=== PATIENT | female | born 1955 | race Caucasian/White ===

== ENCOUNTER 2018-03-09 08:52 | Emergency (ER) | payer OTHER ==
[2018-03-09 09:01] VITALS: RESP 18
--- NOTE | 2018-03-09 09:35 | ED ---
Fall HPI - General Chief Complaint: Fall Stated Complaint: Fall, head injury Time Seen by Provider: 03/09/18 09:13 Source: patient, RN notes reviewed Mode of arrival: ambulatory Limitations: no limitations - History of Present Illness Initial Comments: 63-year-old female presents emergency Department chief complaint head injury. Patient states she tripped fell backwards struck her head is on the tile floor or the corner of the door frame. Patient states that she knows consciousness but she felt days. Patient has headache in the posterior aspect. Denies any neck pain no extremity injury no back pain. Patient states she just concerned as she fell and struck her head significantly. Patient does not take any aspirin or any other anticoagulants. Patient denies blurred vision, double vision, nausea, vomiting. Patient is here with sister who states that she is at her normal baseline no confusion. - Related Data Home Medications Medication Instructions Recorded Confirmed Atorvastatin [Lipitor] 10 mg PO HS 03/09/18 03/09/18 Losartan Potassium [Cozaar] 25 mg PO HS 03/09/18 03/09/18 Magnesium Oxide [Coles] 1,000 mg PO HS 03/09/18 03/09/18 Zinc 50 mg PO HS 03/09/18 03/09/18 metFORMIN HCL 1,000 mg PO BID 03/09/18 03/09/18 Allergies Allergy/AdvReac Type Severity Reaction Status Date / Time morphine AdvReac Vomiting Verified 03/09/18 09:08 Sulfa (Sulfonamide AdvReac MOUTH SORES Verified 03/09/18 09:08 Antibiotics) Review of Systems ROS Statement: Those systems with pertinent positive or pertinent negative responses have been documented in the HPI. ROS Other: All systems not noted in ROS Statement are negative. Past Medical History Past Medical History: Diabetes Mellitus, Hypertension History of Any Multi-Drug Resistant Organisms: None Reported Past Surgical History: Back Surgery, Section, Orthopedic Surgery, Tonsillectomy Past Psychological History: No Psychological Hx Reported Smoking Status: Never smoker Past Alcohol Use History: None Reported Past Drug Use History: None Reported General Exam Limitations: no limitations General appearance: alert, in no apparent distress Head exam: Present: atraumatic, normocephalic. Absent: normal inspection ( Small hematoma occipital region) Eye exam: Present: normal appearance, PERRL, EOMI. Absent: scleral icterus, conjunctival injection, periorbital swelling ENT exam: Present: normal exam, normal oropharynx, mucous membranes moist, TM's normal bilaterally, normal external ear exam Neck exam: Present: normal inspection, full ROM. Absent: tenderness, meningismus, lymphadenopathy Respiratory exam: Present: normal lung sounds bilaterally. Absent: respiratory distress, wheezes, rales, rhonchi, stridor Cardiovascular Exam: Present: regular rate, normal rhythm, normal heart sounds. Absent: systolic murmur, diastolic murmur, rubs, gallop, clicks GI/Abdominal exam: Present: soft, normal bowel sounds. Absent: distended, tenderness, guarding, rebound, rigid Extremities exam: Present: normal inspection, full ROM, normal capillary refill. Absent: tenderness, pedal edema, joint swelling, calf tenderness Back exam: Present: normal inspection, full ROM. Absent: tenderness Neurological exam: Present: alert, oriented X3, CN II-XII intact, reflexes normal, other (Finger to nose intact bilaterally without over shooting). Absent : motor sensory deficit Skin exam: Present: warm, dry, intact, normal color. Absent: rash Course Vital Signs 03/09/18 08:55 Temperature 98.2 F Pulse Rate 98 Respiratory 18 Rate Blood Pressure 160/79 O2 Sat by Pulse 99 Oximetry Medical Decision Making - Medical Decision Making 63-year-old female presented emergency department for head injury. CT was obtained no acute fracture or intracranial hemorrhage. Patient patient was given instructions for head injury and return parameters. Disposition Clinical Impression: Fall, Head injury Disposition: HOME SELF-CARE Condition: Stable Instructions: Head Injury (ED) Additional Instructions: Please return to the Emergency Department if symptoms worsen or any other concerns. Is patient prescribed a controlled substance at d/c from ED?: No Referrals: Bernard Leslie MD [Primary Care Provider] - 1-2 days Time of Disposition: 11:13
--- NOTE | 2018-03-09 11:10 | CT ---
EXAMINATION TYPE: CT brain kymberly ellis con DATE OF EXAM: 03/09/2018 COMPARISON: None HISTORY: Fell hit back of head, no LOC CT DLP: 1117 mGycm, Automated exposure control for dose reduction was used. CONTRAST: None CT of the brain is performed utilizing 3 mm thick sections through the posterior fossa and 3 mm thick sections through the remaining calvarium. Study is performed within 24 hours of arrival to the hospital. No abnormal hyperdensity is present to suggest an acute intracranial hemorrhage. No mass lesion is evident. No acute infarcts are evident. Ventricles and sulci are appropriate for the patient age. Paranasal sinuses and mastoid air cells within the [id number] are clear. IMPRESSIONS: 1. Normal CT brain. CT cervical spine. COMPARISON: None CT of the cervical spine is performed in the axial plane at 2 mm thick sections. Reconstructed image s in the coronal, and sagittal plane are reviewed on the computer. No acute fractures are evident. There is straightening of the vertebral body alignment in the sagittal plane. This can be related to patient positioning. There is disc space narrowing C6-C7. Vertebral body heights are preserved. No spinal canal stenosis is evident. No neural foraminal stenosis is evident. Small amount of anterior vertebral body spurring is present C5, C6, and C7. IMPRESSIONS: 1. No acute abnormality cervical spine. 2. Degenerative disc changes C6-7.
[2018-03-09 11:25] VITALS: BP 162/98; PULSE 88; TEMP 98.1
== END 2018-03-09 11:23 | disposition home or self-care (01) ==
LOC: EC 08:52
DX: S00.03XA Contusion of scalp, initial encounter (principal); E11.9 Type 2 diabetes mellitus without complications; I10 Essential (primary) hypertension; Z88.2 Allergy status to sulfonamides; Z88.5 Allergy status to narcotic agent; Z79.84 Long term (current) use of oral hypoglycemic drugs; Z79.899 Other long term (current) drug therapy; W01.198A Fall on same level from slipping, tripping and stumbling with subsequent striking against other object, initial encounter; Y92.009 Unspecified place in unspecified non-institutional (private) residence as the place of occurrence of the external cause
CPT/HCPCS: 70450; 72125; 99283

== ENCOUNTER 2018-10-18 09:13 | Day surgery (SDC) | payer BC ==
[2018-10-17 11:24] VITALS: BMI 34.7
[~2018-10-18 09:13] MED LIST: LACTATED RINGERS 1,000 ML IV SCH; LIDOCAINE 1% 20 ML VIAL (10MG/ML) FOR IV START INTRADERMA PRN
[2018-10-18 10:52] LABS: Glucose,Whole Blood 98 mg/dL (75-99)
[2018-10-18 10:53] VITALS: TEMP 96.9
[2018-10-18] MEDS ORDERED: LIDOCAINE 1% INJ 10MG/ML (20 ML MDV) ONE (12:04)
[2018-10-18] MEDS ORDERED: PROPOFOL 10 MG/ML 20 ML VIAL IV ONE (12:04)
[2018-10-18 12:29] VITALS: RESP 16
[2018-10-18 12:51] VITALS: BP 163/80; PULSE 76
--- NOTE | 2018-10-19 00:11 | OP ---
OPERATIVE REPORT DATE OF SERVICE: 10/18/2018. PROCEDURE: Colonoscopy and polypectomy. PREOPERATIVE DIAGNOSIS: Screening for neoplasia. POSTOPERATIVE DIAGNOSES: 1. Two small polyps snared in the right colon and sigmoid, but no large polyps or cancer. 2. Sigmoid diverticulosis with no evidence of acute diverticulitis or stricture. PREPARATION: Half-Lytely prep. SEDATION: Provided by Anesthesia. BRIEF CLINICAL HISTORY: The patient is a 63-year-old female with history of polyps, who is scheduled for this evaluation for screening. Her last exam was around 7 years ago. The patient has no abdominal complaints, bleeding or anemia. DESCRIPTION OF PROCEDURE: With the patient on her left lateral decubitus position and after informed consent and adequate sedation, the perianal area was inspected and it did not show any fissures or fistulas. There were no masses felt on digital rectal examination. The Olympus CFH 190L video colonoscope was then inserted in the rectum in the usual fashion and advanced to the cecum. There were multiple diverticular orifices seen scattered in the sigmoid with no evidence of acute diverticulitis or strictures. The mucosa appeared healthy. There were 2 polyps noted, both were small, 1 in the proximal right colon and 1 in the mid sigmoid. They were snared, but I was not certain if the specimens were collected at the time of this dictation. No other pathology noted. I retroflexed the endoscope in the rectum before the endoscope was withdrawn. The patient tolerated the procedure well. PLAN: The patient was reassured. I anticipate repeating this exam in 5 years. We discussed dietary measures. She will follow up with you as planned. MMODL / IJN: [id number] /
== END 2018-10-18 13:00 | disposition home or self-care (01) ==
LOC: ORWHC2ENDO 09:13
DX: Z12.11 Encounter for screening for malignant neoplasm of colon (principal); D12.5 Benign neoplasm of sigmoid colon; K63.5 Polyp of colon; K57.30 Diverticulosis of large intestine without perforation or abscess without bleeding; Z80.0 Family history of malignant neoplasm of digestive organs; I10 Essential (primary) hypertension; E11.9 Type 2 diabetes mellitus without complications; J45.909 Unspecified asthma, uncomplicated; E78.5 Hyperlipidemia, unspecified; Z88.5 Allergy status to narcotic agent; Z88.2 Allergy status to sulfonamides
CPT/HCPCS: 88305; 45385; J2001; J2704

== ENCOUNTER → 2018-10-25 | Outpatient (CLI) | payer BC ==
--- NOTE | 2018-10-26 10:51 | MM ---
Reason for exam: screening (asymptomatic). Last mammogram was performed 4 years and 8 months ago. History: Patient is postmenopausal. Family history of breast cancer in grandmother. Physical Findings: A clinical breast exam by your physician is recommended on an annual basis and results should be correlated with mammographic findings. MG 3D Screening Mammo W/Cad Bilateral CC and MLO view(s) were taken. Prior study comparison: February 18, 2014, bilateral MG screening mammo w CAD. December 31, 2007, bilateral digital screening mammogram. There are scattered fibroglandular densities. No suspicious abnormality. No significant changes when compared with prior studies. ASSESSMENT: Negative, BI-RAD 1 RECOMMENDATION: Routine screening mammogram of both breasts in 1 year.
== END | disposition home or self-care (01) ==
LOC: RADMAMWWP 08:58
PROVIDERS: ATTEND Family Medicine
DX: Z12.31 Encounter for screening mammogram for malignant neoplasm of breast (principal)
CPT/HCPCS: 77063; 77067

== ENCOUNTER → 2018-11-14 | Outpatient (CLI) | payer BC ==
[2018-11-14 10:23] VITALS: BP 145/84; PULSE 84; RESP 16; TEMP 98.3; BMI 34.8
--- NOTE | 2018-11-14 13:08 | P.HPOB ---
History of Present Illness H&P Date: 11/14/18 Chief Complaint: The patient is here for her routine gynecologic exam. This is a 63-year-old with an LMP of approximately 2002. The patient is here to establish with this office. It has been about 6 years since her last pelvic exam. She states she occasionally feels some vaginal pressure near the vaginal opening and has noticed this after exercising. She has started a new exercise program with a personal security specialist. She denies any postmenopausal bleeding. Review of Systems She denies respiratory, cardiac, or G.I. problems. Past Medical History Past Medical History: Asthma, Diabetes Mellitus, Hyperlipidemia, Hypertension Additional Past Medical History / Comment(s): Type II diabetes. 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 History of Any Multi-Drug Resistant Organisms: None Reported Past Surgical History: Back Surgery, Section, Orthopedic Surgery, Tonsillectomy Additional Past Surgical History / Comment(s): x4. Abdominoplasty, left ankle surgery, bilateral knee surgery. Colonoscopy 2019(3rd, next after 5yr). Past Psychological History: No Psychological Hx Reported Smoking Status: Never smoker Past Alcohol Use History: Rare (One every 4 months) Past Drug Use History: None Reported Additional History: She has been since 1984 and has a day care center in her home. - Past Family History Father Family Medical History: Diabetes Mellitus Additional Family Medical History / Comment(s): Pulmonary fibrosis. Mother Family Medical History: Coronary Artery Disease (CAD) Additional Family Medical History / Comment(s): Maternal grandmother had breast cancer in a maternal uncle had colon cancer. Medications and Allergies Home Medications Medication Instructions Recorded Confirmed Type Atorvastatin [Lipitor] 10 mg PO HS 03/09/18 11/14/18 History Losartan Potassium [Cozaar] 25 mg PO HS 03/09/18 11/14/18 History metFORMIN HCL 1,000 mg PO BID 03/09/18 11/14/18 History Turmeric Root Extract [Turmeric] 500 mg PO DAILY 10/17/18 11/14/18 History Magnesium 200 mg PO 11/14/18 History Allergies Allergy/AdvReac Type Severity Reaction Status Date / Time morphine AdvReac Vomiting Verified 11/14/18 10:25 Sulfa (Sulfonamide AdvReac MOUTH SORES Verified 11/14/18 10:25 Antibiotics) Exam Vital Signs Temp Pulse Resp BP Pulse Ox 11/14/18 10:20 98.3 F 84 16 145/84 99 Intake and Output 11/13/18 11/14/18 11/14/18 22:59 06:59 14:59 Other: Weight 97.976 kg Height 5'6", weight 216 pounds, BMI 34.9. This is a well-developed well-nourished white female who is alert and oriented times 3 in no acute distress. HEENT: Within normal limits. NECK: Supple without mass or thyromegaly. CHEST AND LUNGS: Clear to auscultation. HEART: Regular rate and rhythm. BREASTS: Are without mass or discharge. There is slight central nipple inversion bilaterally. AXILLARY EXAM: Negative for adenopathy. BACK: Negative for CVA tenderness. ABDOMEN: Soft, nontender, without palpable masses. PELVIC EXAM: Normal external genitalia with mild to moderate atrophy. Cervix and vagina appear normal with mild to moderate atrophy. The cervix is quite anterior and the patient states that has been this way for years making it more difficult to obtain the Pap smear in the past. There is no unusual discharge. There is no evidence of prolapse. The uterus is midposition, slightly retroverted nongravid size and nontender. There are no palpable adnexal masses or tenderness. RECTAL EXAM: rectovaginal exam is negative for mass or tenderness and is negative for occult blood. EXTREMITIES: Nontender. IMPRESSION: 1. 63-year-old menopausal female with normal gynecologic exam. PLAN: 1. Pap smear was performed. 2. Self breast awareness was discussed with the patient. 3. Screening mammogram was done on 10/25/2018 and was benign. 4. Osteoporosis prevention was discussed. I have stressed the importance of adequate calcium, vitamin D and regular exercise. Recommended amounts of calcium and vitamin D were also discussed. I have recommended bone density screening and in order slip was given to the patient for this. 5. She was advised to return in one year for her annual well woman exam.
== END ==
LOC: WWCWWP 09:43
PROVIDERS: ATTEND Obstetrics & Gynecology
DX: Z53.9 Procedure and treatment not carried out, unspecified reason (principal)

== ENCOUNTER → 2019-03-21 | Outpatient (CLI) | payer BC | END | disposition home or self-care (01) | LOC: CPPFTMAIN 12:44 | PROVIDERS: ATTEND Internal Medicine Critical Care Medicine | DX: J44.1 Chronic obstructive pulmonary disease with (acute) exacerbation (principal); R94.2 Abnormal results of pulmonary function studies | CPT/HCPCS: 94060; 94726; 94729 ==

== ENCOUNTER → 2019-11-08 | Outpatient (CLI) | payer BC ==
--- NOTE | 2019-11-08 15:22 | US ---
EXAMINATION TYPE: US abdomen limited DATE OF EXAM: 11/08/2019 COMPARISON: NONE CLINICAL HISTORY: Z68.41 Morbid Obesity. no pain. Preimaging for gastric surgery. EXAM MEASUREMENTS: Liver Length: 16.8 cm Gallbladder Wall: 0.2 cm CBD: 0.3 cm Right Kidney: 9.6 x 5.2 x 4.7 cm Pancreas: Tail obscured by overlying bowel gas. Echogenic in appearance. Liver: wnl Gallbladder: Multiple mobile echogenic foci Evidence for sonographic Mon's sign: neg CBD: wnl Right Kidney: Medial anechoic lesion at hilum - 1.5 x 1.1 cm IMPRESSION: 1. Mild hepatomegaly with mild fatty infiltration of the liver. 2. Cholelithiasis 3. Small cyst near the right renal hilum.
== END | disposition home or self-care (01) ==
LOC: RADUSWWP 08:46
PROVIDERS: ATTEND Family Medicine
DX: R16.0 Hepatomegaly, not elsewhere classified (principal); K76.0 Fatty (change of) liver, not elsewhere classified
CPT/HCPCS: 76705

== ENCOUNTER → 2020-06-02 | Outpatient (CLI) | payer BC, MEDICARE | END | disposition home or self-care (01) | LOC: LABWHC1 09:42 | DX: Z53.9 Procedure and treatment not carried out, unspecified reason (principal) ==

== ENCOUNTER → 2020-06-02 | Outpatient (CLI) | payer BC, MEDICARE ==
--- NOTE | 2020-06-02 11:10 | MM ---
Reason for exam: clinical finding. Last mammogram was performed 1 year and 7 months ago. History: Patient is postmenopausal. Family history of breast cancer in maternal grandmother at age 67. Indicated problem(s): lump or thickening in the right breast. Physical Findings: Nurse did not find any significant physical abnormalities on exam. MG 3D Diag Mammo W/Cad SHANEKA Bilateral CC and MLO view(s) were taken. Prior study comparison: October 25, 2018, bilateral MG 3d screening mammo w/cad. February 18, 2014, bilateral MG screening mammo w CAD. There are scattered fibroglandular densities. No significant new findings when compared with previous films. These results were verbally communicated with the patient and result sheet given to the patient on 06/02/20. ASSESSMENT: Benign, BI-RAD 2 RECOMMENDATION: Routine screening mammogram of both breasts in 1 year.
== END | disposition home or self-care (01) ==
LOC: RADMAMWWP 09:36
PROVIDERS: ATTEND Family Medicine
DX: N63.10 Unspecified lump in the right breast, unspecified quadrant (principal)
CPT/HCPCS: 77062; 77066

== ENCOUNTER → 2020-06-04 | Outpatient (CLI) | payer BC, MEDICARE ==
[2020-06-04 14:15] LABS: Basophils % (A) 0 %; Eosinophils # (A) 0.1 k/uL (0-0.7); Eosinophils % (A) 1 %; HCT 40.3 % (34.0-46.0); HGB 12.9 gm/dL (11.4-16.0); Lymphocytes # (A) 2.4 k/uL (1.0-4.8); Lymphocytes % (A) 40 %; MCH 29.1 pg (25.0-35.0); Mean Platelet Volume 7.5; Monocytes # (A) 0.4 k/uL (0-1.0); Monocytes % (A) 6 %; Neutrophils # (A) 3.1 k/uL (1.3-7.7); Neutrophils % (A) 51 %; Platelet Count 243 k/uL (150-450); RBC 4.43 m/uL (3.80-5.40); RDW 13.8 % (11.5-15.5); WBC 6.1 k/uL (3.8-10.6)
[2020-06-04 20:10] LABS: % Iron Saturation 13.02 (12.00-45.00); African American GFR (CKD) 109.3 (60.0-200.0); Albumin 4.5 g/dL (3.80-4.90); Albumin/Globulin Ratio 2.5 (1.60-3.17); Anion Gap 8.5 mmol/L (4.00-12.00); Calcium 9.9 mg/dL (8.7-10.3); Carbon Dioxide 28.5 mmol/L (21.6-31.8); Globulin 1.8 g/dL (1.6-3.3); Non-African American GFR(CKD) 94.3 (60.0-200.0); Total Bilirubin 0.7 mg/dL (0.2-1.2); Total Protein 6.3 g/dL (6.2-8.2)
[2020-06-04 20:53] LABS: Ferritin 10.6 ng/mL (10.0-291.0)
[2020-06-04 20:55] LABS: Hemoglobin A1C 6.4 % (4.0-6.0)
[2020-06-05 14:11] LABS: Zinc, Serum 62 ug/dL (60-130)
== END | disposition home or self-care (01) ==
LOC: LABWHC1 12:50
PROVIDERS: ATTEND Surgery
DX: E66.01 Morbid (severe) obesity due to excess calories (principal); K91.2 Postsurgical malabsorption, not elsewhere classified; Z98.84 Bariatric surgery status
CPT/HCPCS: 36415; 80053; 82525; 82607; 82728; 82746; 83036; 83540; 83550; 84466; 84630; 85025

== ENCOUNTER → 2021-12-24 | Outpatient (CLI) | payer BC, MEDICARE ==
--- NOTE | 2021-12-24 19:24 | US ---
EXAMINATION TYPE: US venous doppler duplex LE LT DATE OF EXAM: 12/24/2021 5:24 PM COMPARISON: NONE CLINICAL HISTORY: M79.672 PAIN IN LEFT FOOT. Pain in left foot. No hx of DVT. Patient does not take b lood thinners. SIDE PERFORMED: Left TECHNIQUE: The lower extremity deep venous system is examined utilizing real time linear array sonog linda with graded compression, doppler sonography and color-flow sonography. VESSELS IMAGED: Common Femoral Vein: Patent and compressible Deep Femoral Vein: Patent and compressible Greater Saphenous Vein : Patent and compressible Femoral Vein: Patent and compressible Popliteal Vein: Patent and compressible Proximal Calf Veins: Patent and compressible IMPRESSION: No evidence for deep vein thrombosis of the left lower extremity.
== END | disposition home or self-care (01) ==
LOC: RADUSWWP 16:51
PROVIDERS: ATTEND Podiatrist Foot & Ankle Surgery
DX: M79.672 Pain in left foot (principal)

== ENCOUNTER → 2023-12-30 | Outpatient (CLI) | payer OTHER, MEDICARE | END | disposition home or self-care (01) | LOC: LABWHC1 10:27 | PROVIDERS: ATTEND Orthopaedic Surgery | DX: E11.9 Type 2 diabetes mellitus without complications | CPT/HCPCS: 36415; 80061; 82306; 83036; 87070; 93005 ==

== ENCOUNTER → 2024-02-09 | Outpatient (CLI) | payer OTHER, MEDICARE ==
--- NOTE | 2024-02-09 18:59 | BD ---
EXAMINATION TYPE: Axial Bone Density DATE OF EXAM: 02/09/2024 CLINICAL HISTORY: 69 years old Female. ICD-10 CODE: Z78.0 Postmenopausal Height: 62.8 Weight: 197 FRAX RISK QUESTIONS: Family History (Parent hip fracture): yes History of Fracture in Adulthood: yes 3. Menopause before 45: 53 RISK FACTORS HISTORY OF: hx of ankle fx, surgical repair, gastric sleeve MEDICATIONS: bp meds, cholesterol, magnesium, vit c, vit d, EXAM MEASUREMENTS: Bone mineral densitometry was performed using the Moovit System. Bone mineral density as measured about the Lumbar spine is: ----- L1-L4(G/cm2): 1.288 T Score Values are as follows: ----- L1: 1.3 ----- L2: 0.6 ----- L3: 0.9 ----- L4: 0.7 ----- L1-L4: 0.9 Z Score Values are as follows: ----- L1: 2.1 ----- L2: 1.4 ----- L3: 1.8 ----- L4: 1.6 ----- L1-L4: 1.8 Bone mineral density is her baseline study today. Bone mineral density about the R hip (g/cm2): 0.944 Bone mineral density about the L hip (g/cm2): 0.950 T Score values are as follows: -----R Neck: -1.3 -----L Neck: -1.7 -----R Total: -0.5 -----L Total: -0.5 Z Score values are as follows: -----R Neck: -0.1 -----L Neck: -0.5 -----R Total: 0.4 -----L Total: 0.5 Bone mineral density is her first dexa study, baseline. FRAX%s: The graph provided illustrates a 15.8% chance for a major osteoporotic fx and a 3.1% chance f or the hips probability for fx in 10 years time. IMPRESSION: Osteopenia (T Score between -2.5 and -1). There is slightly increased risk of fracture and the patient may be considered for treatment. Re-Screen 2-5 years. NOTE: T-SCORE=SD OF THE YOUNG ADULT MEAN. [facility], , 02/09/2024 6:57 PM
--- NOTE | 2024-02-11 13:38 | MM ---
Reason for Exam: Screening (asymptomatic). Last mammogram was performed 3 year(s) and 8 month(s) ago. Patient History: Menarche at age 12. First Full-Term at age 23. Postmenopausal. Maternal grandmother had breast cancer, age 67. Risk Values: Monique 5 year model risk: 1.8%. NCI Lifetime model risk: 4.9%. Prior Study Comparison: 02/18/2014 Bilateral Screening Mammogram, [facility]. 10/25/2018 Bilateral Screening Mammogram, [facility]. 06/02/2020 Bilateral Diagnostic Mammogram, [facility]. Tissue Density: There are scattered areas of fibroglandular density. Findings: Analyzed By CAD. The pattern is symmetrical. No significant interval change. Scattered benign punctate calcifications are bilateral No suspicious groups of microcalcifications, spiculated or lobular masses, architectural distortion or other secondary signs of malignancy are mammographically apparent. Overall Assessment: Benign, BI-RAD 2 Management: Screening Mammogram of both breasts in 1 year. A negative mammogram report should not preclude additional follow up of suspicious palpable abnormalities. Patient should continue monthly self breast exam. A clinical breast exam by your physician is recommended on an annual basis and results should be correlated with mammographic findings. Note on Monique scores and lifetime risk: 1. A Monique score greater than 3% is considered moderate risk. If this is the case, consider specialist referral to assess eligibility for a risk reducing agent. 2. If overall lifetime risk for the development of breast cancer is 20% or higher, the patient may qualify for future screening with alternating mammogram and breast MRI. [facility], , 02/11/2024 1:35 PM. Electronically signed and approved by: Keenan Mora D.O. Radiologis
== END | disposition home or self-care (01) ==
LOC: RADMAMWWP 12:07
PROVIDERS: ATTEND Family Medicine
CPT/HCPCS: 77063; 77067; 77080

== ENCOUNTER → 2024-05-07 | Outpatient (CLI) | payer MEDICARE, OTHER | END | disposition home or self-care (01) | LOC: LABWHC1 10:34 | PROVIDERS: ATTEND Family Medicine | DX: E11.9 Type 2 diabetes mellitus without complications (principal) | CPT/HCPCS: 36415; 83036 ==

== ENCOUNTER → 2024-08-16 | Outpatient (CLI) | payer MEDICARE, OTHER ==
[2024-08-16 18:41] LABS: BUN/Creat Ratio 28.71 Ratio (12.00-20.00); Blood Urea Nitrogen 20.1 mg/dL (9.0-27.0); Chloride 106 mmol/L (96-109); Chol/HDL Ratio 3.19 Ratio; Glucose 83 mg/dL (70-110); LDL Cholesterol,Calculated 93.8 mg/dL (0.0-131.0); Potassium 4.7 mmol/L (3.5-5.5); Sodium 144 mmol/L (135-145); VLDL Calculation 16.14 mg/dL (5.00-40.00)
[2024-08-16 18:42] LABS: ALT 25 U/L (8-44); AST 24 U/L (13-35); Albumin 4.4 g/dL (3.8-4.9); Albumin/Globulin Ratio 1.83 Ratio (1.60-3.17); Alkaline Phosphatase 65 U/L (41-126); Calcium 9.7 mg/dL (8.7-10.3); Carbon Dioxide 26.9 mmol/L (21.6-31.8); Globulin 2.4 g/dL (1.6-3.3); Total Bilirubin 0.5 mg/dL (0.3-1.2); Total Protein 6.8 g/dL (6.2-8.2)
[2024-08-16 19:07] LABS: Basophils # (A) 0.04 X 10*3/uL (0.00-0.10); Basophils % (A) 0.6 %; Eosinophils # (A) 0.25 X 10*3/uL (0.04-0.35); Eosinophils % (A) 3.8 %; HCT 37.6 % (37.2-46.3); HGB 11.9 g/dL (12.0-15.0); Lymphocytes # (A) 2.44 X 10*3/uL (0.90-5.00); Lymphocytes % (A) 36.7 %; MCH 30.3 pg (27.0-32.0); MCHC 31.6 g/dL (32.0-37.0); MCV 95.7 FL (80.0-97.0); Mean Platelet Volume 10.5 FL (9.5-12.2); Monocytes # (A) 0.51 X 10*3/uL (0.20-1.00); Monocytes % (A) 7.7 %; NRBC Per 100 WBC 0 X 10*3/uL (0.00-0.01); Neutrophils # (A) 3.38 X 10*3/uL (1.80-7.70); Neutrophils % (A) 50.9 %; Platelet Count 226 X 10*3/uL (140-440); RBC 3.93 X 10*6/uL (4.10-5.20); RDW 13.9 % (11.5-14.5); WBC 6.64 X 10*3/uL (4.50-10.00)
== END | disposition home or self-care (01) ==
LOC: LABWHC1 12:52
PROVIDERS: ATTEND Family Medicine
DX: I10 Essential (primary) hypertension (principal); M85.851 Other specified disorders of bone density and structure, right thigh; M85.852 Other specified disorders of bone density and structure, left thigh; E78.00 Pure hypercholesterolemia, unspecified; E11.9 Type 2 diabetes mellitus without complications; E78.5 Hyperlipidemia, unspecified
CPT/HCPCS: 36415; 80053; 80061; 82306; 83036; 84443; 85025